=== PATIENT | female | born 1995 | race Caucasian/White ===

== ENCOUNTER 2021-12-27 13:32 | Emergency (ER) | payer SELFPAY ==
[~2021-12-27] VITALS: Ht 177.8 cm; Wt 101.2 kg
== END 2021-12-27 15:01 | disposition home or self-care (01) ==
LOC: FSED 13:57
DX: S93.402A Sprain of unspecified ligament of left ankle, initial encounter (principal); X50.1XXA Overexertion from prolonged static or awkward postures, initial encounter
CPT/HCPCS: 99283

== ENCOUNTER 2022-04-25 13:56 | Emergency (ER) | payer BC ==
[~2022-04-25] VITALS: Ht 177.8 cm; Wt 103.0 kg
[2022-04-25] MEDS ORDERED: MELOXICAM7.5 MG PO (15:02)
== END 2022-04-25 15:37 | disposition home or self-care (01) ==
LOC: FSED 14:10
DX: M25.562 Pain in left knee (principal); S83.8X2A Sprain of other specified parts of left knee, initial encounter; W18.39XA Other fall on same level, initial encounter; Y93.01 Activity, walking, marching and hiking; Y92.89 Other specified places as the place of occurrence of the external cause
CPT/HCPCS: 99283